=== PATIENT | female | born 1990 | race Caucasian/White ===

== ENCOUNTER 2017-02-17 11:12 | Outpatient (CLI) | payer OTHER ==
[2017-02-17] VITALS (7 sets, daily range): BP systolic 119–154; BP diastolic 71–84
[~2017-02-17] VITALS: Ht 162.6 cm; Wt 72.5 kg
[~2017-02-17 11:12] MED LIST: NOHOMEMEDS; SEPTRA DS TABL1 EACH PO; VICODIN 5-5001 EACH PO
[2017-02-17 12:12] LABS: EOSINOPHIL (%) 1.2 % (0-5); EOSINOPHIL COUNT 0.1 K/uL (0-0.3); HEMATOCRIT 35.6 % (36.0-46.0); IMMATURE GRANULOCYTE (%) 1.2 % (0.0-0.7); IMMATURE GRANULOCYTE COUNT 0.1 K/uL; INSTRUMENT ABS NEUTROPHIL CT 8.2 K/uL; LYMPHOCYTE COUNT 1.9 K/uL (1.0-2.8); MCHC 32.6 G/DL (30.0-36.0); MEAN PLAT.VOLUME 12.5 uM^3 (9.5-12.4); MONOCYTE (%) 4.2 % (3-12); MONOCYTE COUNT 0.5 K/uL (0-0.8); NEUTROPHIL (%) 75.5 % (45-76); NEUTROPHIL COUNT 8.2 K/uL (1.8-6.4); PLATELET COUNT 196 K/uL (156-360); RBC DIS.WIDTH-CV 12.8 % (11.8-14.6); RBC DIS.WIDTH-SD 42.2 % (39-53); RED BLOOD COUNT 3.87 M/uL (3.80-5.20); WHITE BLOOD COUNT 10.8 K/uL (4.1-10.2)
[2017-02-17] MEDS ORDERED: MAKENA250 MG/11 IM (12:21)
[2017-02-17] MEDS ORDERED: PRENATAL TABLE1 EAC3 PO (12:21)
[2017-02-17 12:41] LABS: ALKALINE PHOSPHATASE 174 IU/L (3-129); ANION GAP 11 MEQ/L (2-14); CHLORIDE 106 MEQ/L (99-109); GFR ESTIMATE (CALCULATED) > 59 mL/min/; GLUCOSE 94 mg/dL (70-99); SAMPLE HEMOLYSIS CHECK 0; SAMPLE ICTERIC CHECK 0; SAMPLE LIPEMIA CHECK 0; SODIUM 136 MEQ/L (136-147); TOTAL BILIRUBIN 0.2 MG/DL (0.0-1.0); UREA NITROGEN (BUN) 10 mg/dL (9-23); URIC ACID 4.6 mg/dL (3.1-9.2)
[2017-02-17 13:59] LABS: UR CREATININE CONCENTRATION 77.4 MG/DL
== END 2017-02-17 14:50 | disposition home or self-care (01) ==
LOC: LDRP-OP 11:12 → 2WEST 11:13 → LDRP-OP 05-25 10:21
PROVIDERS: Nurse Practitioner
DX: O13.3 Gestational [pregnancy-induced] hypertension without significant proteinuria, third trimester (principal); O14.93 Unspecified pre-eclampsia, third trimester; Z3A.30 30 weeks gestation of pregnancy
CPT/HCPCS: 59025; 80053; 82570; 84156; 84550; 85025; G0378

== ENCOUNTER 2017-02-23 17:31 | Outpatient (CLI) | payer OTHER ==
[~2017-02-23 17:31] MED LIST changes: +MAKENA250 MG/11 IM; +PRENATAL TABLE1 EAC3 PO
[2017-02-23 17:58] VITALS: BP 159/86
[2017-02-23 18:45] LABS: ADD MIUA? YES; BILIRUBIN NEGATIVE; BLOOD NEGATIVE; COLOR YELLOW ((YELLOW)); GLUCOSE (STRIP) NEGATIVE; KETONES NEGATIVE; LEUKOCYTES TRACE; NITRITE NEGATIVE; PROTEIN (STRIP) 30; SPECIFIC GRAVITY 1.033 (1.000-1.030); UROBILINOGEN 0.2 MG/DL (0.2-1.0)
[2017-02-23 19:18] LABS: EPITHELIAL CELLS 2+ /HPF; RED BLOOD CELLS 0-5 /HPF (0-5); WHITE BLOOD CELLS 0-5 /HPF (0-5)
[2017-02-23 19:19] VITALS: BP 141/83
[2017-02-23 19:19] LABS: BACTERIA 1+ /HPF; CALCIUM OXALATE CRYSTALS 2+ /HPF; CASTS NONE SEEN /LPF; CRYSTALS PRESENT; MUCUS 2+ /LPF; UCUL ADDED? NO
[2017-02-23 21:01] VITALS: BP 143/81
[2017-02-23 21:38] VITALS: BP 142/72
[2017-02-23 21:53] VITALS: BP 135/70
[2017-02-23 22:21] LABS: DRSB INTERNAL CONTROL PASS; PROBE CHECK PASS; SPECIMEN PROCESSING CONTROL PASS
[2017-02-23 22:27] LABS: CANDIDA DNA PROBE NEGATIVE; GARDNERELLA DNA PROBE POSITIVE; INTERNAL CONTROL VALID? YES
[2017-02-24 13:11] LABS: CHLAMYDIA TRACHOMATIS NEGATIVE; NEISSERIA GONORRHOEAE NEGATIVE
== END 2017-02-23 22:45 | disposition short-term general hospital (02) ==
LOC: LDRP-OP 17:31 → 2WEST 17:32 → LDRP-OP 05-25 21:37
PROVIDERS: Midwife; Obstetrics & Gynecology
DX: O60.03 Preterm labor without delivery, third trimester (principal); Z3A.31 31 weeks gestation of pregnancy; O99.333 Smoking (tobacco) complicating pregnancy, third trimester; F17.210 Nicotine dependence, cigarettes, uncomplicated
CPT/HCPCS: 59025; 76815; 81003; 82731; 87480; 87491; 87510; 87591; 87653; 87660; G0378; J0702; J3475; J7050; J7120

== ENCOUNTER 2017-12-05 04:56 | Emergency (ER) | payer OTHER ==
[~2017-12-05] VITALS: Ht 162.6 cm; Wt 76.7 kg
[2017-12-05 05:57] LABS: APPEARANCE SL.HAZY ((CLEAR)); BILIRUBIN NEGATIVE; BLOOD LARGE; COLOR YELLOW ((YELLOW)); GLUCOSE (STRIP) NEGATIVE; KETONES NEGATIVE; LEUKOCYTES MODERATE; NITRITE NEGATIVE; PROTEIN (STRIP) NEGATIVE; SPECIFIC GRAVITY 1.016 (1.000-1.030); UROBILINOGEN 0.2 MG/DL (0.2-1.0)
[2017-12-05 06:08] LABS: BACTERIA RARE /HPF; EPITHELIAL CELLS 1+ /HPF; MUCUS NONE SEEN /LPF; RED BLOOD CELLS 40-50 /HPF (0-5); UCUL ADDED? YES; WHITE BLOOD CELLS TNTC /HPF (0-5)
[2017-12-05 06:09] LABS: HEMOGLOBIN 13.4 G/DL (11.9-15.5); MCHC 33.5 G/DL (30.0-36.0); MCV 89.5 FL (83-99); PLATELET COUNT 244 K/uL (156-360); RBC DIS.WIDTH-CV 11.7 % (11.8-14.6); RBC DIS.WIDTH-SD 38.2 % (39-53); RED BLOOD COUNT 4.47 M/uL (3.80-5.20); WHITE BLOOD COUNT 13.3 K/uL (4.1-10.2)
[2017-12-05 06:28] LABS: ALBUMIN 4.3 g/dL (3.2-4.8); CHLORIDE 105 mEq/L (99-109); SODIUM 136 mEq/L (136-147)
[2017-12-05 06:30] LABS: GLUCOSE 120 mg/dL (70-99)
[2017-12-05 06:31] LABS: TOTAL PROTEIN 7.1 g/dL (6.4-8.3)
[2017-12-05 06:33] LABS: TOTAL BILIRUBIN 0.3 mg/dL (0.0-1.0)
[2017-12-05 06:34] LABS: ALKALINE PHOSPHATASE 104 IU/L (3-129); CREATININE 0.8 mg/dL (0.6-1.3); GFR ESTIMATE (CALCULATED) > 59 mL/min/
[2017-12-05 06:35] LABS: UREA NITROGEN (BUN) 20 mg/dL (9-23)
[2017-12-05 06:36] LABS: AST (GOT) 12 IU/L (2-34)
[2017-12-05 06:37] LABS: ALT (GPT) 15 IU/L (3-49)
[2017-12-05 06:43] LABS: QUANTITATIVE HCG < 4.0 MIU/ML
[2017-12-05] MEDS ORDERED: CIPRO500 MG PO (07:39)
[2017-12-05 08:19] VITALS: BP 135/83
== END 2017-12-05 08:20 | disposition home or self-care (01) ==
LOC: EME 04:56
DX: N39.0 Urinary tract infection, site not specified (principal); F41.9 Anxiety disorder, unspecified
CPT/HCPCS: 74176; 80053; 81003; 84702; 85027; 87086; 99281; 99285